=== PATIENT | male | born 1930 | race Caucasian/White ===

== ENCOUNTER 2017-06-15 14:39 | Emergency (ER) | payer MEDICARE ==
[~2017-06-15] VITALS: Ht 172.7 cm; Wt 76.0 kg
[~2017-06-15 14:39] MED LIST: ALBU8I INH; CALC600T34 PO; GLUC500C56 PO; LATA.005%O OU; LEVA500T PO; METO50TA PO; MEVA40TA6 PO; MUCI600T PO; TAB-TAB PO; TIMO0.2525 LEFT EYE; WARF-20 PO; WARF1TAB PO
[2017-06-15] MEDS ORDERED: SODIUM CHLORIDE 0.9% FLUSH 10 ML FLUSH IV FLUSH PRN (15:00)
[2017-06-15 15:01] VITALS: BP 177/84; PULSE 65; RESP 18; O2SAT 96
--- NOTE | 2017-06-15 15:01 | PD ---
HPI Chief Complaint: altered mental status Time Seen by Provider: 14:56 Travel History International Travel<30 days: No Contact w/Intl Traveler<30days: No History of Present Illness HPI 86-year-old male patient with history of dementia, presents to the ER today from home sent in by his because she states that he is more disoriented than usual, not "snapping out of it". He denies any issues, chest pains, shortness of breath, fevers, or any other symptoms. Modifying Factors: None Associated Signs & Symptoms: Altered mental status Risk Factors: Dementia PFSH Past Medical History Asthma: No Blood Disorders: No Anxiety: No Depression: No Heart Rhythm Problems: Yes (AFIB) Cancer: No Cardiovascular Problems: Yes High Cholesterol: No Chemotherapy: No Chest Pain: No Congestive Heart Failure: No COPD: No Diabetes: No Endocrine: No Glaucoma: Yes Genitourinary: Yes (TURP) Hepatitis: No Hiatal Hernia: No Hypertension: Yes Immune Disorder: No Musculoskeletal: No Neurologic: No Psychiatric: No Reproductive: No Respiratory: No Radiation Therapy: No Sleep Apnea: No Thyroid Disease: No Past Surgical History Abdominal Surgery: No Cardiac Surgery: No Ear Surgery: No Endocrine Surgery: No Eye Surgery: Yes (L AND R CATARACT) Genitourinary Surgery: No Gynecologic Surgery: Yes Oral Surgery: No Pacemaker: No Thoracic Surgery: No Social History Alcohol Use: No Tobacco Use: No Substance Use: No Allergies-Medications (Allergen,Severity, Reaction): Coded Allergies: Sulfa (Sulfonamide Antibiotics) (Unverified Allergy, Severe, HIVES, ) Reported Meds & Prescriptions Reported Meds & Active Scripts Active Mucinex (Guaifenesin) 600 Mg Tabcr 600 Mg PO BID 7 Days Ventolin Hfa (Albuterol Sulfate) 8 Gm Aero 2 Puff INH QID * SHAKE WELL BEFORE USE * Levaquin 500 Mg Tab (Levofloxacin) 500 Mg Tab 500 Mg PO DAILY 5 Days Reported Warfarin Sodium 1 mg (Warfarin Sodium) 1 Mg Tab 3.5 Mg PO SUTUTHSA@16 Warfarin Sodium 4 mg (Warfarin Sodium) 4 Mg Tab 4 Mg PO MOWEFR@16 Timolol Maleate 0.25 % Isa 1 Drop LEFT EYE DAILY Glucosamine Sulfate/Chondroitin Sulfate (Glucosamine/Chondroitin) Tab 1 Tab PO DAILY Calcium 600 Mg Tab 600 Mg PO DAILY Multivitamin (Multivitamins) 1 Tab Tab 1 Tab PO DAILY Mevacor (Lovastatin) 40 Mg Tab 40 Mg PO DAILY Lopressor (Metoprolol Tartrate) 50 Mg Tab 50 Mg PO BID Xalatan (Latanoprost) 0.005 % Soln 1 Drop OU HS Review of Systems ROS Limitations: Altered Mental Status (it is unclear whether the patient is a reliable historian, denies issues) Physical Exam Narrative GENERAL: Well-developed elderly white male patient who is well dressed, currently none acute distress. Awake and alert. SKIN: Focused skin assessment warm/dry. HEAD: Atraumatic. Normocephalic. EYES: Pupils equal and round. No scleral icterus. No injection or drainage. ENT: No nasal bleeding or discharge. Mucous membranes pink and moist. NECK: Trachea midline. No JVD. CARDIOVASCULAR: Regular rate and rhythm. No murmur appreciated. RESPIRATORY: No accessory muscle use. Clear to auscultation. Breath sounds equal bilaterally. GASTROINTESTINAL: Abdomen soft, non-tender, nondistended. Hepatic and splenic margins not palpable. MUSCULOSKELETAL: No obvious deformities. No clubbing. No cyanosis. No edema. NEUROLOGICAL: Awake and alert. No obvious cranial nerve deficits. Motor grossly within normal limits. Normal speech. PSYCHIATRIC: Appropriate mood and affect; insight and judgment poor. Data Data Last Documented VS Vital Signs Date Time Temp Pulse Resp B/P (MAP) Pulse Ox O2 Delivery O2 Flow Rate FiO2 06/15/17 16:27 53 18 153/70 (97) 97 Room Air Orders Orders Electrocardiogram (06/15/17 14:56) Ammonia (06/15/17 14:56) Complete Blood Count With Diff (06/15/17 14:56) Comprehensive Metabolic Panel (06/15/17 14:56) Troponin I (06/15/17 14:56) Thyroid Stimulating Hormone (06/15/17 14:56) Urinalysis - C+S If Indicated (06/15/17 14:56) Chest, Single Ap (06/15/17 14:56) Ct Brain W/O Iv Contrast(Rout) (06/15/17 14:56) Blood Glucose (06/15/17 14:56) Ecg Monitoring (06/15/17 14:56) Iv Access Insert/Monitor (06/15/17 14:56) Oximetry (06/15/17 14:56) Sodium Chloride 0.9% Flush (Ns Flush) (06/15/17 15:00) Labs Laboratory Tests Test 06/15/17 15:35 06/15/17 16:10 White Blood Count 3.5 TH/MM3 Red Blood Count 3.61 MIL/MM3 Hemoglobin 11.9 GM/DL Hematocrit 34.9 % Mean Corpuscular Volume 96.7 FL Mean Corpuscular Hemoglobin 32.9 PG Mean Corpuscular Hemoglobin Concent 34.0 % Red Cell Distribution Width 14.8 % Platelet Count 156 TH/MM3 Mean Platelet Volume 7.1 FL Neutrophils (%) (Auto) 66.6 % Lymphocytes (%) (Auto) 18.0 % Monocytes (%) (Auto) 11.8 % Eosinophils (%) (Auto) 2.4 % Basophils (%) (Auto) 1.2 % Neutrophils # (Auto) 2.4 TH/MM3 Lymphocytes # (Auto) 0.6 TH/MM3 Monocytes # (Auto) 0.4 TH/MM3 Eosinophils # (Auto) 0.1 TH/MM3 Basophils # (Auto) 0.0 TH/MM3 CBC Comment DIFF FINAL Differential Comment Blood Urea Nitrogen 19 MG/DL Creatinine 1.14 MG/DL Random Glucose 96 MG/DL Total Protein 7.5 GM/DL Albumin 3.9 GM/DL Calcium Level 9.2 MG/DL Alkaline Phosphatase 79 U/L Aspartate Amino Transf (AST/SGOT) 26 U/L Alanine Aminotransferase (ALT/SGPT) 26 U/L Total Bilirubin 1.1 MG/DL Sodium Level 141 MEQ/L Potassium Level 4.1 MEQ/L Chloride Level 107 MEQ/L Carbon Dioxide Level 27.2 MEQ/L Anion Gap 7 MEQ/L Estimat Glomerular Filtration Rate 61 ML/MIN Ammonia 19 MCMOL/L Troponin I LESS THAN 0.02 NG/ML Thyroid Stimulating Hormone 3rd Gen 5.030 uIU/ML Urine Color YELLOW Urine Turbidity CLEAR Urine pH 7.5 Urine Specific [place] 1.015 Urine Protein NEG mg/dL Urine Glucose (UA) NEG mg/dL Urine Ketones NEG mg/dL Urine Occult Blood NEG Urine Nitrite NEG Urine Bilirubin NEG Urine Urobilinogen LESS THAN 2.0 MG/DL Urine Leukocyte Esterase NEG Urine RBC 3 /hpf Urine Squamous Epithelial Cells <1 /hpf Microscopic Urinalysis Comment CULT NOT INDICATED MDM Medical Decision Making Medical Screen Exam Complete: Yes Emergency Medical Condition: Yes Medical Record Reviewed: Yes Interpretation(s) EKG shows sinus bradycardia rate of 55 bpm with no signs of acute ST-T changes. Laboratory Tests Test 06/15/17 15:35 06/15/17 16:10 White Blood Count 3.5 TH/MM3 (4.0-11.0) Red Blood Count 3.61 MIL/MM3 (4.50-5.90) Hemoglobin 11.9 GM/DL (13.0-17.0) Hematocrit 34.9 % (39.0-51.0) Monocytes (%) (Auto) 11.8 % (0.0-8.0) Lymphocytes # (Auto) 0.6 TH/MM3 (1.0-4.8) Blood Urea Nitrogen 19 MG/DL (7-18) Total Bilirubin 1.1 MG/DL (0.2-1.0) Estimat Glomerular Filtration Rate 61 ML/MIN (>89) Troponin I LESS THAN 0.02 NG/ML Thyroid Stimulating Hormone 3rd Gen 5.030 uIU/ML (0.358-3.740) Last [address] 06/15/171455 Signed Impressions: Service Date/Time: Thursday, June 15, 2017 15:16 - CONCLUSION: Chronic ischemic and age-related findings. No acute intracranial findings. Reji Garnett MD Chest X-Ray 06/15/171455 Signed Impressions: Service Date/Time: Thursday, June 15, 2017 15:06 - CONCLUSION: No acute cardiopulmonary disease identified. Reji Garnett MD Differential Diagnosis Altered mental status: Dementia versus dehydration versus metabolic issues versus sepsis Narrative Course CT the brain did not show any signs of acute processes. Lab work is fairly unremarkable. No signs of sepsis. Vital signs are stable in the ER. His heart rate still on the slow side but he is on metoprolol. His TSH is Mollie elevated and patient does have some history of hypothyroidism. However, he is conversant, awake, alert and does not appear to be in any distress. He is ambulatory in the ER without issues. At this point, I do not think that this is a thyroid toxicosis. Patient will need follow-up with primary care physician however to see whether he needs to go back on his thyroid medications. is in the room with the patient on reevaluation at 5 and otherwise states that he has not any homicidal or suicidal ideation. My plan would be to release him at this point with follow-up to primary care physician. Return for any worsening in symptoms as needed. The plan has been discussed with him and and they state understanding. Diagnosis Primary Impression: Dementia Additional Impression: Hypothyroidism Disposition: 01 DISCHARGE HOME Condition: Stable Shireen Cosme MD Jun 15, 2017 15:01
--- NOTE | 2017-06-15 15:32 | RADRPT ---
EXAM DATE/TIME: 06/15/2017 15:06 [facility] COMPARISON: No previous studies available for comparison. INDICATIONS : Shortness of breath. MEDICAL HISTORY : Hypertension. SURGICAL HISTORY : None. ENCOUNTER: Initial ACUITY: 1 day PAIN SCORE: 0/10 LOCATION: Bilateral chest FINDINGS: Single AP view of the chest. The lungs are clear. Cardiomediastinal silhouette within normal limits. No evidence of pleural effusion or pneumothorax. CONCLUSION: No acute cardiopulmonary disease identified. Reji Garnett MD on June 15, 2017 at 15:30 Board Certified Radiologist. This report was verified electronically.
[2017-06-15 16:02] LABS: AUTOMATED NEUTROPHIL # 2.4 TH/MM3 (1.8-7.7); BASOPHIL % 1.2 % (0.0-2.0); EOSINOPHIL # 0.1 TH/MM3 (0-0.4); EOSINOPHIL % 2.4 % (0.0-4.0); HEMATOCRIT 34.9 % (39.0-51.0); HEMOGLOBIN 11.9 GM/DL (13.0-17.0); LYMPHOCYTE # 0.6 TH/MM3 (1.0-4.8); MEAN CELL VOLUME 96.7 FL (80.0-100.0); MEAN CORPUSCULAR HEMOGLOBIN 32.9 PG (27.0-34.0); MEAN PLATELET VOLUME 7.1 FL (7.0-11.0); MONO % 11.8 % (0.0-8.0); MONOCYTE # 0.4 TH/MM3 (0-0.9); NEUT % 66.6 % (16.0-70.0); PLATELET COUNT 156 TH/MM3 (150-450); RED BLOOD COUNT 3.61 MIL/MM3 (4.50-5.90); RED CELL DISTRIBUTION WIDTH 14.8 % (11.6-17.2); WHITE BLOOD COUNT 3.5 TH/MM3 (4.0-11.0)
--- NOTE | 2017-06-15 16:13 | RADRPT ---
EXAM DATE/TIME: 06/15/2017 15:16 [facility] COMPARISON: CT BRAIN W/O CONTRAST, May 26, 2015, 8:48. INDICATIONS : Altered mental status. RADIATION DOSE: 56.35 CTDIvol (mGy) MEDICAL HISTORY : Alzheimer's. SURGICAL HISTORY : None. ENCOUNTER: Initial ACUITY: 1 day PAIN SCALE: 0/10 LOCATION: cranial TECHNIQUE: Multiple contiguous axial images were obtained of the head. Using automated exposure control and adj ustment of the mA and/or kV according to patient size, radiation dose was kept as low as reasonably a chievable to obtain optimal diagnostic quality images. DICOM format image data is available electro nically for review and comparison. FINDINGS: CEREBRUM: Diffuse prominence of the ventricles, sulci, and cisterns indicating diffuse atrophy. Chronic small v essel white matter ischemic change seen in the periventricular regions. Bilateral basal ganglia calci fication. No evidence of intracranial mass, acute infarct, or hemorrhage. POSTERIOR FOSSA: The cerebellum and brainstem are intact. The 4th ventricle is midline. The cerebellopontine angle i s unremarkable. EXTRACRANIAL: The visualized portion of the orbits is intact. SKULL: The calvaria is intact. No evidence of skull fracture. CONCLUSION: Chronic ischemic and age-related findings. No acute intracranial findings. Reji Garnett MD on June 15, 2017 at 16:11 Board Certified Radiologist. This report was verified electronically.
[2017-06-15 16:27] VITALS: BP 153/70; PULSE 53; RESP 18; O2SAT 97
[2017-06-15 16:31] LABS: ALBUMIN 3.9 GM/DL (3.4-5.0); ALT (GPT) 26 U/L (12-78); AST (GOT) 26 U/L (15-37); BICARBONATE 27.2 MEQ/L (21.0-32.0); BLOOD UREA NITROGEN 19 MG/DL (7-18); CALCIUM 9.2 MG/DL (8.5-10.1); CHLORIDE 107 MEQ/L (98-107); CREATININE 1.14 MG/DL (0.60-1.30); GLOMERULAR FILTRATION RATE 61 ML/MIN (>89); GLUCOSE,RANDOM 96 MG/DL (74-106); SODIUM (NA) 141 MEQ/L (136-145)
[2017-06-15 16:40] LABS: BILIRUBIN, URINE NEG (NEG); BLOOD, URINE NEG (NEG); GLUCOSE,URINE NEG (NEG); KETONE, URINE NEG (NEG); NITRITE,URINE NEG (NEG); PH, URINE 7.5 (5.0-8.5); SQUAMOUS EPITHELIAL CELL URINE <1 /hpf (0-5); URINE COLOR YELLOW (YELLW/STRAW); URINE LEUKOCYTE ESTERASE NEG (NEG)
[2017-06-15 16:41] LABS: ALKALINE PHOSPHATASE 79 U/L (45-117); TOTAL BILIRUBIN ADULT 1.1 MG/DL (0.2-1.0); TOTAL PROTEIN 7.5 GM/DL (6.4-8.2); TROPONIN I LESS THAN 0.02 NG/ML (0.02-0.05)
--- NOTE | 2017-06-16 07:40 | EKG ---
Date Performed: 06/15/2017 Time Performed: 15:35:52 PTAGE: 86 years EKG: ATRIAL FIBRILLATION WITH SLOW VENTRICULAR RESPONSE POSSIBLE RIGHT VENTRICULAR CONDUCTION DE LAY ABNORMAL RHYTHM ECG PREVIOUS TRACING : 05/26/2015 08.37 No significant change from previous tracing noted. DOCTOR: Jc Benitez Interpretating Date/Time 06/16/2017 07:38:51
== END 2017-06-15 17:52 | disposition home or self-care (01) ==
LOC: NEPC 14:39
DX: F03.90 Unspecified dementia, unspecified severity, without behavioral disturbance, psychotic disturbance, mood disturbance, and anxiety (principal); E03.9 Hypothyroidism, unspecified; I10 Essential (primary) hypertension; I48.91 Unspecified atrial fibrillation; Z79.01 Long term (current) use of anticoagulants
CPT/HCPCS: 70450; 71010; 80053; 81001; 82140; 84443; 84484; 85025; 93005